=== PATIENT | male | born 1980 ===

== ENCOUNTER 2024-02-09 09:47 | Emergency (ER) | payer OTHER | END 2024-02-09 13:08 | LOC: ERS 09:47 → EEVIPCON 09:47 → ERS 13:08 | DX: S05.12XA Contusion of eyeball and orbital tissues, left eye, initial encounter (principal); I10 Essential (primary) hypertension; W10.8XXA Fall (on) (from) other stairs and steps, initial encounter; Y93.89 Activity, other specified | CPT/HCPCS: 70450; 70486; 71046; 72125 ==